=== PATIENT | male | born 1995 | race Two or more races ===

== ENCOUNTER 2018-02-24 18:45 | Emergency (ER) | payer OTHER ==
[2018-02-24 18:53] VITALS: BP 132/80
--- NOTE | 2018-02-24 18:56 | EDPHY ---
H & P Time Seen by Provider: 02/24/18 18:52 Past Medical/Surgical History: CHIEF COMPLAINT: Left ankle pain History by patient HISTORY OF PRESENT ILLNESS: 22-year-old man presents complaining of pain in his left ankle after eversion injury yesterday while playing indoor soccer. He states he has been unable to bear weight on it since and continues have to persistent pain and swelling in the left lateral malleolus. Also feels some this pain and swelling in his anterior la. He denies any knee pain or other injury. He denies any focal numbness or weakness. He has been taking ibuprofen and putting CBD cream on the injury with minimal relief. REVIEW OF SYSTEMS: As in HPI, and all other systems reviewed and are negative Smoking Status: Former smoker Physical Exam: General Appearance: Alert and no distress. Head: Normocephalic, atraumatic Eyes: Pupils equal and round no injection. Extraocular movements are intact. Musculoskeletal: Neck is supple and nontender. Extremities: Left ankle positive marked swelling with tenderness and ecchymoses over the posterior lateral malleolus, no medial malleolus tenderness , no 5th metatarsal tenderness, no Achilles tenderness, no proximal fibula tenderness, full range of motion of left knee, decreased range of motion 2nd pain and left ankle, full range of motion of all toes, distal cap refill less than 2 sec, distal sensation intact, DP pulse 2 +and equal to the right.. Skin: No rashes or lesions except as described above. Constitutional: Initial Vital Signs Temperature (C) 36.7 C 02/24/18 18:51 Heart Rate 62 02/24/18 18:51 Respiratory Rate 14 02/24/18 18:51 Blood Pressure 132/80 H 02/24/18 18:51 O2 Sat (%) 97 02/24/18 18:51 O2 Delivery Mode Room Air Allergies/Adverse Reactions: No Known Allergies Allergy (Verified 02/24/18 18:50) Home Medications: Medication Instructions Recorded NK [No Known Home Meds] 02/24/18 MDM/Departure - [facility] ED Course/Re-evaluation: 22-year-old man presents with left ankle pain and swelling after eversion injury yesterday playing soccer. X-ray shows no evidence of fracture. We will treat the patient for sprain with Velcro splint. We discussed home care, follow -up and return precautions. - Depart Disposition: Home, Routine, Self-Care Clinical Impression: Left ankle sprain Qualifiers: Encounter type: initial encounter Involved ligament of ankle: unspecified ligament Qualified Code(s): S93.402A - Sprain of unspecified ligament of left ankle, initial encounter Condition: Good Instructions: Ankle Sprain (ED) Additional Instructions: You were seen by Dr. Nae Blackwell today. Your x-ray showed no evidence of fracture today. You have a sprained ankle. Continue to use ice and ibuprofen as needed for pain. You may put as much weight on it as you can tolerate. Wear the stirrup splint for comfort. Switch to a lace-up brace in 7-10 days. Get guidance from your team pump servicer about exercises to increase her ankle stability. Follow-up with her primary care physician at [facility] if her symptoms get worse or persist.. Return for any worsening or new concerns. Stand Alone Forms: Work Limited Duty, Work Excuse Referrals: CALLIE MEDLEY [Other] - As per Instructions
== END 2018-02-24 19:30 | disposition home or self-care (01) ==
LOC: CED 18:45
DX: S93.402A Sprain of unspecified ligament of left ankle, initial encounter (principal); W50.0XXA Accidental hit or strike by another person, initial encounter; Y93.66 Activity, soccer; Y92.39 Other specified sports and athletic area as the place of occurrence of the external cause
CPT/HCPCS: 73610-PO; L4350